=== PATIENT | male | born 1960 | race Caucasian/White ===

== ENCOUNTER 2025-07-30 06:18 | Day surgery (SDC) | payer BC, SELFPAY ==
--- NOTE | 2025-07-29 15:11 | W.PM.DSUDISC ---
Date of service: 07/30/25 Discharge Plan Disposition Patient Disposition: Home Condition: Good Discharge Details Reason For Visit: EGD and colonoscopy Attending Provider: Benji Hernadez Primary Care Provider: Yue Ramos Home Meds and New Rx's Prescriptions: Continued multivitamin [Daily Multi-Vitamin] Tablet 1 tab PO DAILY atorvastatin 40 mg Tablet 40 mg PO DAILY metformin 500 mg Tablet 500 mg PO BID omeprazole 40 mg Capsule,Delayed Release(Dr/Ec) 40 mg PO DAILY lisinopril 10 mg Tablet 10 mg PO DAILY sertraline 50 mg Tablet 50 mg PO DAILY Discontinued polyethylene glycol 3350 17 gram/dose powder 238 g PO ONCE Qty: 238 0RF Rx Instructions: take per colonoscopy instructions bisacodyl [Dulcolax (bisacodyl)] 5 mg tablet,delayed release (DR/EC) 5 mg PO ONCE Qty: 4 0RF Rx Instructions: take per colonoscopy instructions Discharge Instructions Instructions: Strickland's esophagus, Diverticulosis Additional Instructions: Mario, was good seeing you today, and hope you feel well after the procedure. Things went smoothly. With regards to the upper endoscopy, there is a little bit of inflammatory changes at the connection between your esophagus and your stomach that do seem consistent with short segment Strickland's esophagus. I did some biopsies of this, and assuming that is consistent with Strickland's, I would recommend a 5-year interval for another EGD. There is also a small hiatal hernia. This occurs on the top portion of your stomach slides above your diaphragm. I doubt there is anything that needs to be done for this at this point. I did a few other biopsies in your stomach just to rule out some other basic sources of heartburn. With regards to the colonoscopy, things look very healthy. There is a segment of your sigmoid colon that is affected by some diverticulosis. This occurs when the muscular layer weakens, and inside lining pockets or pouches outwards. This causes some inflammatory changes in the adjacent colon lining. This is typically referred to a segmental colitis associated with diverticulitis, or SCAD. I suspect this may be related to the positive stool test. You also have some fibroepithelial polyps right at the bottom. These are manasa to skin tags that some patients get externally. There is also some thought that they may be related to old inflamed internal hemorrhoids. Regardless, they cause no risk to your health or wellbeing. I saw no signs of any of the worrisome polyps associated with colon cancer. With a negative colonoscopy today, a 10-year interval is most appropriate for your next screening. If you need anything or have any questions at all, please do not hesitate to ask at any time. Otherwise my office will be in touch once the biopsies from the EGD are completed. 1. If tolerated, consume a soft, low fiber diet for 1-2 days. 2[address] Do not drive, drink alcohol, operate machinery, make critical decisions, or do activities that require coordination or balance for 24 hours. 3. Because air was put into your colon during the procedure, expelling air from your rectum (passing gas or farting) is normal. 4. You may not have a bowel movement for 1-3 days because of the colonoscopy prep. This is normal. 5. You may experience a sore throat for 24 to 48 hours. You may use throat lozenges or gargle with warm salt water to relieve the discomfort. 6. Because air was put into your stomach during the procedure, you may experience some belching. 7. Go directly to the emergency room if you notice any of the following: Develop chills (warm to touch), or if you have a thermometer and your temperature is above 101 Difficulty breathing or difficultly swallowing Persistent vomiting Severe abdominal pain, other than gas cramps Severe chest pain Black, tarry stools Any bleeding – exceeding one tablespoon 8. Call your physician if the site where your intravenous was started becomes red, swollen, painful, and warm to touch. 9. Your physician has reviewed your pre-procedure medications. Please continue to take those medications as previously ordered. You will be given specific information/education regarding any changes to your medications before leaving. Stand Alone Forms: Portal Information Activity:: Activity as Tolerated Diet:: As Tolerated Discharge Orders Discharge Orders: Discharge Order (Routine); Ordered 07/29/25 Ordered By: Benji Hernadez DS: Diagnosis Discharge Diagnosis (1) Encounter for screening colonoscopy: Status: Acute Asessment and Plan: Follow-up on EGD biopsy results
--- NOTE | 2025-07-29 15:12 | ENDO_ITS ---
Date of service: 07/30/25 Time of Service: 08:08 Endoscopy Report DATE OF PROCEDURE: 07/30/25 PRE-OP DIAGNOSIS: Lymphoma POST-OP DIAGNOSIS: other (Short segment Strickland's esophagus, diverticulosis) PROCEDURE: EGD with biopsies and colonoscopy SURGEON: Benji Hernadez ANESTHESIA TYPE: General:No Airway ESTIMATED BLOOD LOSS: 5 PATHOLOGY: other (Nondirected biopsies of gastric antrum and body to rule out Helicobacter pylori; four-quadrant biopsies of GE junction at 38 cm) COMPLICATIONS: None DISPOSITION: same day INDICATIONS: Mario is a 64-year-old male with a history of longstanding gastroesophageal reflux disease with breakthrough symptoms despite PPI management. He needs an EGD as surveillance for Strickland's esophagus. He is also due for screening colonoscopy as part of routine health maintenance PREP: Miralax/Dulcolax PROCEDURE START TIME: 07:31 PROCEDURE END TIME: 07:53 COLONOSCOPY RETRACTION TIME: 8 FINDINGS: Short segment Strickland's esophagus at 38 cm from the incisors; sigmoid diverticulosis PROCEDURE DESCRIPTION: After the initiation of anesthesia, and with the assistance of a bite block, I advanced a standard gastroscope through the mouth past the hypopharynx and into the esophagus. Under the direct vision of the scope, I advanced down the esophagus towards the stomach. The upper, mid, and lower esophagus were normal. The GE junction is measured at 38 cm from the incisors. There is less than 1 cm of irregularity of the Z-line, and narrowband imaging did have some features consistent with Strickland's esophagus. I can advance down across the GE junction into the stomach with ease. The stomach is insufflated, and there are signs of a Hill grade 1 sliding hiatal hernia. Gastric mucosa was largely normal- appearing. There were a few diminutive fundic land polyps. Narrowband imaging was used to assist with the analysis. I can advance down through the pylorus into the duodenum with ease. The duodenum is all normal and healthy appearing. I then brought the camera back up into the stomach. There is a little thickness of the gastric antrum, but the mucosa and submucosal pattern generally appeared normal. Cold forceps biopsies were performed. There was minimal bleeding. I also perform some nondirected biopsies of the gastric body to rule out Helicobacter pylori. I then brought the camera back up to the GE junction and perform four-quadrant biopsies to evaluate for Strickland's esophagus. These were also performed with cold forceps with no significant bleeding. I then advanced the camera back down into the stomach and emptied completely before removal of the camera. We then rolled Mario in the left lateral decubitus position. Care was taken to ensure that he was padded and supported appropriately. I began by performing an external anorectal exam. Perineum and skin were normal, as was the anal verge. There was no evidence of external hemorrhoids. Next, I performed a digital rectal exam. I did not appreciate any abnormal findings. Next, I advanced a colonoscope into the rectal vault. I performed retroflexion. There are diminutive fibroepithelial polyps at the top portion of the anal column. Narrowband imaging was used to assist with the analysis of this. None of these had any adenomatous features. Using irrigation, I then advanced the colonoscope beyond the rectal folds and into the sigmoid colon before advancing towards the cecum. The quality of the prep was excellent. The scope was noted to be in the cecum by identification of the ileocecal valve and appendiceal orifice. I then began withdrawing the colonoscope using repeated irrigation as necessary for full evaluation of the colonic mucosa. There was sigmoid diverticulosis, with a few punctate areas of inflammation within this segment. Once the scope was withdrawn to the level of the rectum, great care was taken to examine portions of the rectal folds. Finally, the scope was withdrawn and the patient was brought to the same-day surgery recovery unit as the anesthetic wore off. The findings and instructions were shared with the patient prior to discharge.
--- NOTE | 2025-07-30 06:12 | W.ANESPRE ---
General Info Date of Service Date Performed: 07/30/25 Height: 5 ft 9 in Weight: 87.317 kg Body Mass Index (BMI): 28.4 Surgical Procedure: Operation Date: 07/30/25 07:35 Proposed Procedure Side Surgeon p Colonoscopy/Gastroscopy Benji Hernadez MD Meds Allergies and Home Medications Allergies Allergy/AdvReac Type Severity Reaction Status Date / Time No Known Allergies Allergy Unverified 07/30/25 06:49 Home Medication Medication Instructions Recorded atorvastatin 40 mg tablet 40 mg PO DAILY 04/18/23 lisinopril 10 mg tablet 10 mg PO DAILY 04/18/23 metformin 500 mg tablet 500 mg PO BID 04/18/23 omeprazole 40 mg capsule,delayed 40 mg PO DAILY 04/18/23 release sertraline 50 mg tablet 50 mg PO DAILY 04/18/23 multivitamin (Daily Multi-Vitamin 1 tab PO DAILY 04/25/23 tablet) Current Visit Medications: Current Medications Generic Name Dose Route Start Last Admin Trade Name Freq PRN Reason Stop Dose Admin Ringer's Solution 1,000 mls @ 80 mls/hr 07/30/25 06:00 IV 07/30/25 23:59 INFUSION CECILIA IV Miscellaneous Supplies 1 each 07/30/25 06:00 Iv Access IV 07/30/25 23:59 DIRECTED CECILIA Sodium Chloride 0 ml 07/30/25 06:00 Normal Saline Flush 10 Ml Syr IV 07/30/25 23:59 PRN PRN Sodium Chloride 0 ml 07/30/25 06:00 Normal Saline 10 Ml Vial IJ 07/30/25 23:59 DIRECTED PRN Sterile Water 0 ml 07/30/25 06:00 Water,Injection,Sterile 10 Ml Vial IJ 07/30/25 23:59 DIRECTED PRN PFSH Active Problems Active Problems: Problem Status Onset Code Encounter for screening colonoscopy Acute Z12.11 H/O heart artery stent Chronic Z95.5 Chronic GERD Acute K21.9 HTN (hypertension) Chronic I10 Hematest positive stools Acute R19.5 Medical History Medical History (Updated 07/01/25 @ 09:53 by Benji Hernadez MD) Collapsed vertebra, not elsewhere classified, thoracic region, initial encounter for fracture Calculus of kidney Gastroesophageal reflux disease without esophagitis Hyperlipidemia Non-Hodgkin lymphoma, unspecified, unspecified site Type 2 diabetes mellitus without 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 Please see original notes in EMR for more complete details. Echocardiogram Summary: 09/2016 EF 65%, mildly dilated RA and LA, no significant valvular abnormalities Anesthesia Assessment and Plan Anesthesia History Personal History: No History of Anesthesia Complications Family History: No Family History of Anesthesia Complications Exercise Tolerance Exercise Tolerance: Metabolic Equivalents>4 Pertinent Negatives Pertinent Negatives: No Symptoms of GERD (controlled with med), No Major Cardiovascular Symptoms or Complaints and No Major Pulmonary Symptoms or Complaints Cardiac & Pulmonary Exam Cardiac Exam: Normal S1/S2 Heart Sounds Pulmonary Exam: Clear Bilateral Breath Sounds Implantable Cardiac Device Does patient have a Pacemaker or an ICD?: No Airway Exam Known Difficult Airway: No Mallampati Class: 3 Mouth Opening: Normal (> 3cm) Thyromental Distance: Greater than 3 cm Neck Range of Motion: Full ROM Neck Circumference: Normal Teeth Condition: Normal Dentition ASA Classification ASA Score: ASA 2 Emergency Case?: No NPO Status NPO Status: NPO Clears >2 hours, Solids >8 hours Anesthesia Plan Resuscitation Status: Full Code Anesthesia Technique: General Anesthesia Airway Planned: Natural Airway Monitors Used: Standard Monitors
[2025-07-30 06:52] VITALS: BP 125/83; PULSE 97; RESP 22; TEMP 36.2; O2SAT 98
[2025-07-30] MEDS: Lactated Ringers 1,000 ML 80 ML IV (07:04)
[2025-07-30 07:18] VITALS: BMI 28.4
--- NOTE | 2025-07-30 07:34 | STOM_PTH ---
PATIENT: Mario Aguilar LOC: [facility] U#:[id number] AGE/SX: 64/M ROOM: RE07/30/[address]: Benji Hernadez MD : 1960 BED: DIS: 07/30/2025 SPEC #: [id number] RECD: 07/30/25 12:53 STATUS: MAJOR RE #: [id number] TROY: 07/30/25 07:[address]: Benji Hernadez DEPT: Surgical Specimen RECD BY: Gia Valle ENTERED: 07/30/25 12:55 SP TYPE: STOMACH OTHR DR: Yue Ramos Tissues: 1 - STOMACH BIOPSY 2 - STOMACH BIOPSY 3 - ESOPHAGUS BIOPSY Procedures: GROSS AND MICRO LEVEL 4 Comments: [id number]
[2025-07-30 07:58] VITALS: BP 121/80; PULSE 91; RESP 16; TEMP 36.7; O2SAT 97
[2025-07-30 08:27] VITALS: BP 131/77; PULSE 79; RESP 16; TEMP 36.5; O2SAT 96
--- NOTE | 2025-07-30 08:38 | W.ANESPOSTOP ---
Postoperative Evaluation Date, Time and Location Date Performed: 07/30/25 Time Performed: 07:58 Patient Location: Day Surgery Unit Vital Signs Most Recent Imported Vital Signs: Most Recent Vital Signs Temp Pulse Resp BP Pulse Ox 36.7 C 91 H 16 121/80 97 07/30/25 07:58 07/30/25 07:58 07/30/25 07:58 07/30/25 07:58 07/30/25 07:58 Pain Score Most Recent Pain Score: Most Recent Pain Score Pain Level 0 07/30/25 07:58 Assessment Mental Status: Awake (Alert & Oriented to Patient Baseline) Airway and Respiratory Function: Patent airway with normal (patient baseline) respiratory exam Cardiovascular Function: Hemodynamically Stable Hydration Status: Adequately Hydrated Nausea & Vomiting: No Nausea or Vomiting Pain: Pt. Denies Any Pain Peripheral Nerve Block: Patient did not receive a nerve block
== END 2025-07-30 08:38 | disposition home or self-care (01) ==
LOC: SUR 06:19
PROVIDERS: PCP Internal Medicine; Visit Provider Surgery
PROC: (CPT 43239; principal; 2025-07-30 07:30)
DX: Z12.11 Encounter for screening for malignant neoplasm of colon (principal); K22.70 Barrett's esophagus without dysplasia; K22.9 Disease of esophagus, unspecified
CPT/HCPCS: 43239; 45378; 88305; J2003; J2704